=== PATIENT | female | born 1985 | race American Indian/Alaskan Native ===

== ENCOUNTER 2016-12-08 06:32 | Day surgery (SDC) | payer MEDICARE, MEDICAID ==
[~2016-12-08 06:32] MED LIST: Midazolam 1 MG/ML 2 ML SDV ONE; fentaNYL 100 MCG/2 ML SDV ONE
[2016-12-08] MEDS ORDERED: Dextrose 5%-0.45% NaCl 1,000 ML IV SCH (07:00)
[2016-12-08] MEDS ORDERED: Midazolam 1 MG/ML 2 ML SDV IV ONE ×10 (07:34→09:59)
[2016-12-08] MEDS ORDERED: fentaNYL 100 MCG/2 ML SDV IV ONE ×5 (07:34→09:59)
[2016-12-08 10:13] VITALS: BP 106/68
--- NOTE | 2016-12-08 13:08 | OR ---
DATE: 12/08/2016 PROCEDURES: Total colonoscopy, cold snare polypectomy, and multiple pinch biopsies. INSTRUMENT USED: PCF-H180AL Olympus video colonoscope. PREMEDICATIONS: Fentanyl 150 mcg intravenous, Versed 5.5 mg intravenous. Nasal O2 cannula. The procedure was done under pulse oximetry, BP recording, and mortgage assistant. INDICATION: The patient with known rheumatoid arthritis and Behcet's disease with increasing constipation with abdominal pain, unexplained and not responsive to medical measures. Colonoscopic examination is done for detection of any polypoid lesions and removal, biopsies to be obtained for any evidence of amyloidosis, endoscopic hemostasis therapy if needed. DESCRIPTION OF PROCEDURE: Initial rectal exam was unremarkable. Rigid anoscopy was normal. The colonoscope was passed with ease. Scattered diverticula were noted in the distal left colon along with deformity. In the distal descending colon, 8 mm sized pedunculated polyp was noted, cold snare polypectomy was done, the tissue was retrieved and sent for histopathology. The scope was passed with ease up to the ileocecal area, photographs were taken of the normal-appearing cecum, identified by double-bulged ileocecal folds. No bleeding was noted from any of the visualized areas at the commencement of the examination. No stricture. No vascular ectasia. No large isolated ulcerations seen. No evidence of diffuse inflammatory bowel disease in the form of friability, contact bleeding, or ulcerations. Probing the proximal sides of folds and flexures, using adequate distention and clearing of the stool material, withdrawal of the scope was made, cecum to rectum time over 6 minutes. No bleeding was noted from any of the visualized areas at the completion of examination. IMPRESSION: 1. Diverticulosis. 2. Descending colon polyp. The patient tolerated the procedure well. [facility] /[id number]
== END 2016-12-08 10:15 | disposition home or self-care (01) ==
LOC: DL.ENDO 06:32
PROVIDERS: ATTEND Internal Medicine Gastroenterology
DX: D12.4 Benign neoplasm of descending colon (principal); K57.30 Diverticulosis of large intestine without perforation or abscess without bleeding; E66.9 Obesity, unspecified; Z88.1 Allergy status to other antibiotic agents; Z88.2 Allergy status to sulfonamides; F17.210 Nicotine dependence, cigarettes, uncomplicated
CPT/HCPCS: 45385; J2250; J3010; J7042; 88305